=== PATIENT | female | born 1945 | race Caucasian/White ===

== ENCOUNTER 2016-10-31 15:54 | Emergency (ER) | payer OTHER ==
[2016-10-31 16:00] VITALS: BMI 24.0
[2016-10-31 17:23] LABS: EOSINOPHIL 2.9 % (0-4.5); MCH 28.7 pg (25.7-33.7); MCHC 34.1 g/dl (32.0-36.0); MEAN PLT VOLUME 8.3 fl (7.5-11.1); NEUTROPHILS 55.5 % (42.8-82.8); PLATELET COUNT 262 K/MM3 (134-434); RDW 13.8 % (11.6-15.6); WHITE BLOOD COUNT 5.1 K/mm3 (4.0-10.0)
--- NOTE | 2016-10-31 17:36 | PDOC ---
History of Present Illness <Abebe Abdul - Last Filed: 10/31/16 17:36> - General History Source: Patient Exam Limitations: No Limitations - History of Present Illness Initial Comments: 10/31/16 18:46 The patient is a 71 year old female with history of hypertension, hyperlipidemia , diabetes, s/p R knee replacement, on ASA who presents to the ED s/p mechanical fall. The patient states she tripped down 4 steps and hit her head and right knee. She does endorse brief LOC, but regained consciousness soon after. She complains of right knee pain on evaluation, worse with bearing weight. The patient denies headache, blurred vision, numbness, tingling, or focal weakness. She denies nausea, vomiting, or diarrhea. She denies neck or back pain. She denies any pre-episodic chest pain, shortness of breath, lightheadedness, or dizziness. <Irasema Angel - Last Filed: 10/31/16 18:59> <Michele Manzano - Last Filed: 10/31/16 20:55> - General Chief Complaint: Injury Stated Complaint: FALL/ HEAD INJURY Time Seen by Provider: 10/31/16 17:35 Past History - Past Medical History Anemia: No Asthma: No Cancer: No Cardiac Disorders: No CVA: No COPD: No CHF: No Dementia: No Diabetes: Yes GI Disorders: Yes (GERD) Disorders: No HTN: Yes Hypercholesterolemia: Yes Liver Disease: No Seizures: No Thyroid Disease: No - Surgical History Abdominal Surgery: No Appendectomy: No Cardiac Surgery: No Cholecystectomy: No Lung Surgery: No Neurologic Surgery: No Orthopedic Surgery: Yes (r knee arthroscopy) - Immunization History Immunization Up to Date: Yes - Psycho/Social/Smoking Cessation Hx Anxiety: Yes Suicidal Ideation: No Smoking Status: No Smoking History: Never smoked Number of Cigarettes Smoked Daily: 0 Hx Alcohol Use: No Drug/Substance Use Hx: No Substance Use Type: None Hx Substance Use Treatment: No <Abebe Abdul - Last Filed: 10/31/16 17:36> <Irasema Angel - Last Filed: 10/31/16 18:59> <Michele Manzano - Last Filed: 10/31/16 20:55> - Past Medical History Allergies/Adverse Reactions: Allergies Allergy/AdvReac Type Severity Reaction Status Date / Time No Known Allergies Allergy Verified 10/31/16 16:00 Home Medications: Ambulatory Orders Atorvastatin Ca [Lipitor] 20 mg PO HS 11/27/15 Hydrochlorothiazide [Hctz -] 12.5 mg PO DAILY 11/27/15 Montelukast Na [Singulair -] 10 mg PO HS 11/27/15 Albuterol Sulfate Inhaler - [Ventolin HFA Inhaler -] 1 puff PO PRN PRN 08/23/16 Amlodipine Besylate/Benazepril [Lotrel 5-40 mg Capsule] 5 - 20 mg PO DAILY 08/23 [place]-3 Fatty Acids [[place]-3] 1,000 mg PO DAILY 08/23/16 Ranitidine [Zantac -] 150 mg PO DAILY PRN 08/23/16 Sitagliptin Phosphate [Januvia] 100 mg PO BID 08/23/16 Tramadol HCl 50 mg PO PRN PRN 08/23/16 Aspirin [ASA -] 325 mg PO DAILY@0800 tablet 08/31/16 Oxycodone HCl/Acetaminophen [Percocet 5-325 mg Tablet -] 1 - 2 tab PO Q6H #50 tab MDD 8 08/31/16 Review of Systems - Review of Systems Able to Perform ROS?: Yes Comments:: 10/31/16 18:51 GENERAL/CONSTITUTIONAL: No fever or chills. No weakness. HEAD, EYES, EARS, NOSE AND THROAT: No change in vision. No ear pain or discharge. No sore throat CARDIOVASCULAR: No chest pain or shortness of breath. RESPIRATORY: No cough, wheezing, or hemoptysis. GASTROINTESTINAL: No nausea, vomiting, diarrhea or constipation. GENITOURINARY: No dysuria, frequency, or change in urination. MUSCULOSKELETAL: R knee pain. No other joint or muscle swelling or pain. No neck or back pain. SKIN: No rash NEUROLOGIC: No headache, vertigo, loss of consciousness, or change in strength/ sensation. ENDOCRINE: No increased thirst. No abnormal weight change. HEMATOLOGIC/LYMPHATIC: No anemia, easy bleeding, or history of blood clots. ALLERGIC/IMMUNOLOGIC: No hives or skin allergy. <Irasema Angel - Last Filed: 10/31/16 18:59> *Physical Exam - Vital Signs Last Vital Signs Temp Pulse Resp BP Pulse Ox 98.1 F 85 16 154/88 97 10/31/16 15:56 10/31/16 15:56 10/31/16 15:56 10/31/16 15:56 10/31/16 15:56 <Abebe Abdul - Last Filed: 10/31/16 17:36> - Vital Signs Last Vital Signs Temp Pulse Resp BP Pulse Ox 98.1 F 85 16 154/88 97 10/31/16 15:56 10/31/16 15:56 10/31/16 15:56 10/31/16 15:56 10/31/16 15:56 - Physical Exam Comments: 10/31/16 18:52 GENERAL: Patient is awake, alert and in no acute distress. Speech is clear and appropriate. HEAD: Atraumatic and nontender. HEENT: Pupils are equal round and reactive to light, extraocular movements are intact. The tympanic membranes are clear, no hemotympanum. No facial deformity. No facial bone tenderness or step-off. No nasal septal hematoma. The oropharynx is clear. NECK: The trachea is midline, there is no stridor. There is no midline cervical spine tenderness, full range of motion of neck. CHEST: Non-tender, no ecchymosis or abrasions. Equal chest wall expansion bilaterally. No flail segments. Lungs are clear to auscultation bilaterally. CARDIOVASCULAR: S1-S2, regular rate and rhythm. No murmurs or rubs. ABDOMEN: Soft, nontender, nondistended. Bowel sounds are normoactive. There is no abdominal or flank ecchymosis. BACK/PELVIS: There is no midline thoracic or lumbosacral spine tenderness or step-off. Pelvis is stable and nontender. EXTREMITIES: Right lower extremity: There is diffuse tenderness knee, no bony deformity. No swelling. No focal bony tenderness. Sensation intact distally, 2+radial pulses. All other extremities: There is no extremity deformity or joint swelling. No focal bony tenderness throughout. 2+ distal pulses throughout. NEURO: Alert and oriented x3. Cranial nerves II through XII are intact. 5 out of 5 motor strength x4 extremities. No gross sensory deficits. Finger-nose- finger is intact. No pronator drift. Gait deferred. SKIN: No abrasions, hematomas, lacerations. PSYCH: Affect is appropriate <Irasema Angel - Last Filed: 10/31/16 18:59> - Vital Signs Last Vital Signs Temp Pulse Resp BP Pulse Ox 98.1 F 85 16 154/88 97 10/31/16 15:56 10/31/16 15:56 10/31/16 15:56 10/31/16 15:56 10/31/16 15:56 <Michele Manzano - Last Filed: 10/31/16 20:55> ED Treatment Course - LABORATORY CBC & Chemistry Diagram: 10/31/16 17:00 10/31/16 17:00 - ADDITIONAL ORDERS Additional order review: 10/31/16 17:00 RBC 4.50 MCV 84.0 MCHC 34.1 RDW 13.8 MPV 8.3 Neutrophils % 55.5 D Lymphocytes % 30.4 D Monocytes % 10.2 Eosinophils % 2.9 Basophils % 1.0 - RADIOLOGY Radiology Studies Ordered: Category Date Time Status HEAD CT WITHOUT CONTRAST [CT] Stat CT Scan 10/31/16 17:00 Ordered KNEE 3 POS-LEFT [RAD] Stat Radiology 10/31/16 17:10 Taken <Abebe Abdlu - Last Filed: 10/31/16 17:36> - LABORATORY CBC & Chemistry Diagram: 10/31/16 17:00 10/31/16 17:00 - ADDITIONAL ORDERS Additional order review: Laboratory Results 10/31/16 10/31/16 17:00 17:00 INR 1.11 PTT (Actin FS) 39.8 H Sodium 138 Potassium 4.7 D Chloride 102 Carbon Dioxide 30 Anion Gap 6 L BUN 18 Creatinine 0.7 Creat Clearance w eGFR > 60 Random Glucose 226 H D Calcium 8.8 Total Bilirubin 0.4 AST 22 D ALT 19 Alkaline Phosphatase 77 Creatine Kinase 54 Troponin I < 0.02 Total Protein 7.2 Albumin 3.6 10/31/16 17:00 RBC 4.50 MCV 84.0 MCHC 34.1 RDW 13.8 MPV 8.3 Neutrophils % 55.5 D Lymphocytes % 30.4 D Monocytes % 10.2 Eosinophils % 2.9 Basophils % 1.0 <Irasema Angel - Last Filed: 10/31/16 18:59> - LABORATORY CBC & Chemistry Diagram: 10/31/16 17:00 10/31/16 17:00 - ADDITIONAL ORDERS Additional order review: Laboratory Results 10/31/16 10/31/16 17:00 17:00 INR 1.11 PTT (Actin FS) 39.8 H Sodium 138 Potassium 4.7 D Chloride 102 Carbon Dioxide 30 Anion Gap 6 L BUN 18 Creatinine 0.7 Creat Clearance w eGFR > 60 Random Glucose 226 H D Calcium 8.8 Total Bilirubin 0.4 AST 22 D ALT 19 Alkaline Phosphatase 77 Creatine Kinase 54 Troponin I < 0.02 Total Protein 7.2 Albumin 3.6 10/31/16 17:00 RBC 4.50 MCV 84.0 MCHC 34.1 RDW 13.8 MPV 8.3 Neutrophils % 55.5 D Lymphocytes % 30.4 D Monocytes % 10.2 Eosinophils % 2.9 Basophils % 1.0 <Michele Manzano - Last Filed: 10/31/16 20:55> *DC/Admit/Observation/Transfer - Attestations Physician Attestion: 10/31/16 17:36 I, Dr. Abebe Abdul, attest that this document has been prepared under my direction and personally reviewed by me in its entirety. I further attest, that it accurately reflects all work, treatment, procedures and medical decision -making performed by me. <Abebe Abdul - Last Filed: 10/31/16 17:36> - Attestations Scribe Attestion: 10/31/16 18:54 Documentation prepared by Irasema Angel, acting as certified court/medical interpreter for Abebe Abdul DO. <Irasema Angel - Last Filed: 10/31/16 18:59> - Discharge Dispostion Admit: No <Michele Manzano - Last Filed: 10/31/16 20:55> Diagnosis at time of Disposition: Injury of head, Contusion of knee - Discharge Dispostion Disposition: HOME Condition at time of disposition: Stable - Referrals Referrals: Zane Kim [Primary Care Provider] -
[2016-10-31 17:54] LABS: INR 1.11 (0.82-1.09); PROTHROMBIN TIME (PATIENT) 12.2 SEC (9.98-11.88)
[2016-10-31 17:56] LABS: ACTIVATED PTT 39.8 SECONDS (26.9-34.4)
[2016-10-31 18:04] LABS: ALBUMIN 3.6 g/dl (3.4-5.0); ANION GAP 6 (8-16); BILIRUBIN,TOTAL 0.4 mg/dL (0.2-1.0); CALCIUM 8.8 mg/dL (8.5-10.1); CO2 30 mmol/L (21-32); CREATININE 0.7 mg/dL (0.55-1.02); GLUCOSE,RANDOM 226 mg/dL (74-106); SGPT/ALT 19 U/L (12-78); TOT PROT 7.2 g/dl (6.4-8.2)
[2016-10-31 18:06] LABS: ALK PHOS 77 U/L (45-117); TROPONIN I < 0.02 ng/ml (0.00-0.05)
[2016-10-31 18:09] LABS: SGOT/AST 22 U/L (15-37)
[2016-10-31 21:15] VITALS: BP 135/80; PULSE 87; TEMP 98.2
== END 2016-10-31 21:15 | disposition home or self-care (01) ==
LOC: JER 15:54
DX: S06.9X9A Unspecified intracranial injury with loss of consciousness of unspecified duration, initial encounter (principal); S80.01XA Contusion of right knee, initial encounter; W10.8XXA Fall (on) (from) other stairs and steps, initial encounter; Y93.89 Activity, other specified; Y92.038 Other place in apartment as the place of occurrence of the external cause; I10 Essential (primary) hypertension; E11.9 Type 2 diabetes mellitus without complications; Z79.84 Long term (current) use of oral hypoglycemic drugs; E78.00 Pure hypercholesterolemia, unspecified
CPT/HCPCS: 36415; 70450-TC; 73562-TC-LT; 80053; 82550; 84484; 85025; 85610; 85730; 99282-25

== ENCOUNTER 2020-10-22 19:27 | Inpatient (IN) | payer OTHER ==
[2020-10-22] MEDS ORDERED: morphine CARPU-JECT 2 MG/1 ML DISP.SYRIN IVPUSH ONE ×2 (20:15→21:10)
[2020-10-22] MEDS ORDERED: SODIUM CHLORIDE 1,000 ML IV STA (20:15)
[2020-10-22] MEDS ORDERED: MORPHINE SULFATE 2 MG/ML VIAL ONE ×3 (20:20→21:23)
[2020-10-22 21:15] LABS: HEMATOCRIT 37.7 % (32.4-45.2); HEMOGLOBIN 12.6 GM/dL (10.7-15.3); MCH 30.8 pg (25.7-33.7); MCHC 33.4 g/dl (32.0-36.0); MEAN CELL VOLUME 92.2 fl (80-96); MEAN PLT VOLUME 9.6 fl (7.5-11.1); PLATELET COUNT 246 K/MM3 (134-434); RBC 4.09 M/mm3 (3.60-5.2); WHITE BLOOD COUNT 6.9 K/mm3 (4.0-10.0)
[2020-10-22 21:19] LABS: EPI CELLS 7 /uL (0-25.1); HYALINE CASTS 1 /uL (0-3.1); URINE APPEARANCE CLOUDY; URINE BACTERIA 30 /uL (0-1359); URINE BILIRUBIN NEGATIVE (NEGATIVE); URINE COLOR YELLOW; URINE GLUCOSE (UA) 3+ (NEGATIVE); URINE KETONE TRACE (NEGATIVE); URINE LEUK ESTERASE NEGATIVE (NEGATIVE); URINE NITRITE NEGATIVE (NEGATIVE); URINE PROTEIN TRACE (NEGATIVE); URINE RBC 3301 /uL (0-23.9); URINE UROBILINOGEN 0.2 mg/dL (0.2-1.0); URINE WBC 40 /uL (0-25.8)
[2020-10-22] MEDS ORDERED: METOCLOPRAMIDE HCL INJECTION 10 MG/2 ML VIAL ONE (21:23)
[2020-10-22] MEDS ORDERED: morphine CARPU-JECT 4 MG/1 ML DISP.SYRIN SQ ONE (21:24)
[2020-10-22] MEDS ORDERED: METOCLOPRAMIDE HCL INJECTION 10 MG/2 ML VIAL IVPB ONE (21:25)
[2020-10-22 21:31] LABS: POTASSIUM 3.9 mmol/L (3.5-5.1)
[2020-10-22 21:33] LABS: CALCIUM 9.7 mg/dL (8.5-10.1)
[2020-10-22 21:34] LABS: BLOOD UREA NITROGEN 26.6 mg/dL (7-18)
[2020-10-22 21:37] LABS: CREATININE 1.1 mg/dL (0.55-1.3)
[2020-10-22 21:38] LABS: BILIRUBIN,TOTAL 0.3 mg/dL (0.2-1); TOT PROT 7.4 g/dl (6.4-8.2)
[2020-10-22] MEDS ORDERED: SODIUM CHLORIDE 1,000 ML IV SCH (23:15)
[2020-10-23] MEDS ORDERED: ONDANSETRON 4 MG/2 ML VIAL IVPUSH PRN ×2 (00:52→15:08)
[2020-10-23] MEDS ORDERED: morphine SULFATE 4 MG/ML VIAL IVPUSH PRN (03:00)
[2020-10-23 07:31] LABS: BASO % 0.6 % (0-2.0); EOS % 2.1 % (0-4.5); HEMATOCRIT 35.4 % (32.4-45.2); HEMOGLOBIN 11.9 GM/dL (10.7-15.3); LYMPH % 19.5 % (8-40); MCH 30.9 pg (25.7-33.7); MCHC 33.6 g/dl (32.0-36.0); MEAN PLT VOLUME 9.4 fl (7.5-11.1); MONO % 12.3 % (3.8-10.2); NEUT % 65.5 % (42.8-82.8); PLATELET COUNT 221 K/MM3 (134-434); RBC 3.84 M/mm3 (3.60-5.2); RDW 15.2 % (11.6-15.6); WHITE BLOOD COUNT 6.1 K/mm3 (4.0-10.0)
[2020-10-23 07:49] LABS: POTASSIUM 4.4 mmol/L (3.5-5.1)
[2020-10-23 07:52] LABS: ALBUMIN 3.3 g/dl (3.4-5.0); BLOOD UREA NITROGEN 20.8 mg/dL (7-18); CALCIUM 8.6 mg/dL (8.5-10.1)
[2020-10-23 07:57] LABS: TOT PROT 6.4 g/dl (6.4-8.2)
[2020-10-23 08:16] LABS: BILIRUBIN,TOTAL 1.1 mg/dL (0.2-1)
[2020-10-23] MEDS ORDERED: FAMOTIDINE 20 MG/50 ML IVPB 20 MG/50 ML MG IVPB SCH (10:00)
[2020-10-23] MEDS ORDERED: FAMOTIDINE 20 MG/50 ML IVPB 20 MG/50 ML MG IVPB ONE (10:08)
[2020-10-23] MEDS ORDERED: morphine SULFATE 4 MG/ML VIAL ONE (10:15)
[2020-10-23 13:51] VITALS: BMI 22.6
[2020-10-23] MEDS ORDERED: MIDAZOLAM HCL 2 MG/2 ML SINGLE DOSE VIAL ONE (14:08)
[2020-10-23] MEDS ORDERED: LIDOCAINE HCL/PF 2% SDV 5ML VIAL ONE (14:08)
[2020-10-23] MEDS ORDERED: ceFAZolin SODIUM 1 GM VIAL ONE (14:09)
[2020-10-23] MEDS ORDERED: PNEUMOC 13-VAL CONJ-DIP CRM/PF 0.5 ML DISP.SYRIN IM ONE (14:26)
[2020-10-23] MEDS ORDERED: ceFAZolin SODIUM 1 GM VIAL IVPB ONE (14:26)
[2020-10-23] MEDS ORDERED: INSULIN (NOVOLOG) ASPART 100 UNITS/ML 10ML VIAL SQ SCH (16:30)
[2020-10-23] MEDS ORDERED: ONDANSETRON 4 MG/2 ML VIAL IVPUSH ONE (17:39)
[2020-10-23] MEDS ORDERED: PANTOPRAZOLE 40 MG TABLET PO ONE (17:39)
[2020-10-23] MEDS: INSULIN SLIDING SCALE (NOVOLOG) 1 VIAL SQ SCH ×2 (17:56→21:53)
[2020-10-23] MEDS: SODIUM CHLORIDE 1,000 ML IV SCH (17:59)
[2020-10-23] MEDS: FAMOTIDINE 20 MG/50 ML IVPB 20 MG/50 ML MG IVPB SCH (21:52)
[2020-10-24] MEDS: SODIUM CHLORIDE 1,000 ML IV SCH (02:10)
[2020-10-24] MEDS: INSULIN SLIDING SCALE (NOVOLOG) 1 VIAL SQ SCH ×2 (06:15→12:39)
[2020-10-24] MEDS: FAMOTIDINE 20 MG/50 ML IVPB 20 MG/50 ML MG IVPB SCH (09:09)
[2020-10-24] MEDS ORDERED: traMADol HCL 50 MG TABLET PO PRN (09:44)
[2020-10-24] MEDS ORDERED: ACETAMINOPHEN 325 MG TABLET (FP) PO PRN (09:44)
[2020-10-24 11:56] VITALS: BP 127/64; PULSE 74; TEMP 97.4
[2020-10-24 12:00] LABS: BASO % 0.5 % (0-2.0); EOS % 2.2 % (0-4.5); HEMATOCRIT 32.5 % (32.4-45.2); HEMOGLOBIN 10.8 GM/dL (10.7-15.3); LYMPH % 20.4 % (8-40); MCH 30.6 pg (25.7-33.7); MCHC 33.1 g/dl (32.0-36.0); MEAN CELL VOLUME 92.6 fl (80-96); MEAN PLT VOLUME 9.4 fl (7.5-11.1); MONO % 11.2 % (3.8-10.2); NEUT % 65.7 % (42.8-82.8); PLATELET COUNT 197 K/MM3 (134-434); RBC 3.51 M/mm3 (3.60-5.2); WHITE BLOOD COUNT 5.7 K/mm3 (4.0-10.0)
[2020-10-24 12:19] LABS: POTASSIUM 3.8 mmol/L (3.5-5.1)
[2020-10-24 12:20] LABS: ALBUMIN 2.9 g/dl (3.4-5.0); BLOOD UREA NITROGEN 8.3 mg/dL (7-18); CALCIUM 8.4 mg/dL (8.5-10.1)
[2020-10-24 12:25] LABS: CREATININE 0.7 mg/dL (0.55-1.3)
[2020-10-24 12:26] LABS: BILIRUBIN,TOTAL 1.2 mg/dL (0.2-1); TOT PROT 5.7 g/dl (6.4-8.2)
== END 2020-10-24 14:34 | disposition home or self-care (01) | DRG 661 ==
LOC: JER 19:27 → JERBED 23:11 → J7W 10-23 11:44
PROVIDERS: ADMIT Internal Medicine; ATTEND Family Medicine
PROC: 0TC68ZZ Extirpation of Matter from Right Ureter, Via Natural or Artificial Opening Endoscopic (ICD-10-PCS; principal; 2020-10-23 13:00)
PROC: 0T768DZ Dilation of Right Ureter with Intraluminal Device, Via Natural or Artificial Opening Endoscopic (ICD-10-PCS; 2020-10-23 13:00)
DX: N13.2 Hydronephrosis with renal and ureteral calculous obstruction (principal); I10 Essential (primary) hypertension; E78.5 Hyperlipidemia, unspecified; E11.9 Type 2 diabetes mellitus without complications; Z79.84 Long term (current) use of oral hypoglycemic drugs; R07.89 Other chest pain
CPT/HCPCS: 36415; 71045-TC-FY; 74176-TC; 80053; 81003; 82360; 82962; 84484; 85025; 85027; 87086; 87186; 88300-TC; 93005; 93010; 94760; 99285-25; C9803; U0003